=== PATIENT | male | born 1955 | race Caucasian/White ===

== ENCOUNTER 2019-12-21 14:04 | Inpatient (IN) | payer MEDICAID ==
[~2019-12-21] VITALS: Ht 167.6 cm; Wt 59.0 kg
[2019-12-21 14:10] VITALS: BP 129/76
--- NOTE | 2019-12-21 14:28 | NUR ---
BIB FAMILY C/O N/V & ABDOMINAL PAIN XTODAY . ABDOMEN SOFT. PATIENT STATES PAIN OF 4/10 AT THIS TIME. PATIENT POSITIONED FOR COMFORT; HOB ELEVATED; BEDRAILS UP X2; BED DOWN. ER MD MADE AWARE OF PT STATUS.
--- NOTE | 2019-12-21 14:52 | NUR ---
X RAY AT BEDSIDE.
--- NOTE | 2019-12-21 14:52 | NUR ---
LAB AT BEDSIDE.
--- NOTE | 2019-12-21 15:13 | NUR ---
EKG AT BEDSIDE.
[2019-12-21 15:16] LABS: BASOPHILS % (AUTO) 0.3 % (0.0-2.0); EOSINOPHILS % (AUTO) 0.1 % (0.0-4.0); HEMATOCRIT 48.4 % (36-52); HEMOGLOBIN 15.8 g/dL (12.0-18.0); LYMPHOCYTES # (AUTO) 1.2 K/uL (2.0-11.5); LYMPHOCYTES % (AUTO) 9.4 % (20.5-51.1); MEAN CORPUSCULAR HEMOGLOBIN 28 pg (27-31); MEAN CORPUSCULAR HGB CONC 33 g/dL (33-37); MEAN CORPUSCULAR VOLUME 87.1 fL (80-94); MONOCYTES # (AUTO) 0.4 K/uL (0.8-1.0); MONOCYTES % (AUTO) 3.5 % (1.7-9.3); NEUTROPHILS # (AUTO) 10.7 K/uL (1.8-7.7); NEUTROPHILS % (AUTO) 86.7 % (42.2-75.2); PLATELET COUNT (AUTO) 245 K/uL (140-450); RED BLOOD CELL COUNT(AUTO) 5.56 MIL/uL (4.20-6.10); RED CELL DISTRIBUTION WIDTH 13.8 % (11.6-13.7); WHITE BLOOD COUNT (AUTO) 12.3 K/uL (4.8-10.8)
[2019-12-21 15:32] LABS: ACETONE, SERUM NEGATIVE (NEGATIVE)
[2019-12-21 15:38] LABS: ALBUMIN 4.3 g/dL (3.4-5.0); ANION GAP 16.1 (8-16); ASPARTATE AMINOTRANSFERASE 14 U/L (15-37); CARBON DIOXIDE 28.1 mmol/L (21-32); CHLORIDE 106 mmol/L (98-107); CREATININE 0.9 mg/dL (0.7-1.3); GFR ARICAN-AMERICAN 109 mL/min (>90); GLUCOSE 192 mg/dL (74-106); MAGNESIUM 2.2 mg/dL (1.8-2.4); POTASSIUM 4.2 mmol/L (3.5-5.1); SODIUM SERUM 146 mmol/L (136-145); TOTAL BILIRUBIN 0.4 mg/dL (0.0-1.0); UREA NITROGEN, BLOOD 35 mg/dL (7-18)
[2019-12-21] MEDS ORDERED: FAMOTIDINE 20 MG/2 ML VIAL IVP ONE (16:15)
[2019-12-21] MEDS ORDERED: ONDANSETRON 4 MG/2 ML VIAL IVP ONE (16:15)
[2019-12-21] MEDS ORDERED: METOCLOPRAMIDE 10 MG/2 ML INJ VIAL IVP ONE (16:15)
[2019-12-21] MEDS: NACL 0.9% 1,000 ML IV ONE ×2 (16:19→17:10)
[2019-12-21] MEDS ORDERED: ATOR20TA40 PO (17:17)
[2019-12-21] MEDS ORDERED: METO25TE2 PO (17:17)
[2019-12-21] MEDS ORDERED: ESCI5TAB PO ×2 (17:17→17:59)
[2019-12-21] MEDS ORDERED: METO25TA PO (17:59)
[2019-12-21] MEDS ORDERED: ATOR40TA PO (17:59)
[2019-12-21] MEDS ORDERED: INSU100S22 SC (17:59)
[2019-12-21] MEDS ORDERED: DOCUSATE SODIUM 100 MG GELCAP PO PRN (18:00)
[2019-12-21] MEDS ORDERED: ACETAMINOPHEN 325 MG TAB PO PRN (18:00)
[2019-12-21] MEDS ORDERED: HYDROcodone/APAP 7.5/325 MG 1 TAB PO PRN (18:00)
[2019-12-21] MEDS ORDERED: ONDANSETRON 4 MG/2 ML VIAL IM/IVP PRN (18:00)
--- NOTE | 2019-12-21 18:25 | NUR ---
PT CAME TO UNIT FROM ER. PT WAS ENDORSED BY ER NURSE AILEEN. PT CAME TO UNIT VIA GURNEY ACCOMPANIED BY DAUGHTER AND MOTHER. IV INTACT ON RIGHT FOREARM, 2O GAUGE. SKIN IN TACT. NO ER PHOTOGRAPH. BELONGINGS LIST SIGNED. PER DAUGHTER AND MOTHER. PT HAS LEFT SIDED WEAKNESS FROM A STROKE IN MARCH 2019. ALSO NOTED WITH RIGHT CRANIAL DEPRESSION. PATIENT IS AXO 1. VITAL SIGNS NOTED AT TEMP: 98.1, RESP: 18, O2 99, HR 77, BP 123/73. PT RESPONDS TO VERBAL STIMULI. FAMILY BE BEDSIDE.
--- NOTE | 2019-12-21 18:28 | NUR ---
Patient will be admitted to care of dr luu. Admited to [MS. Will go to room 123A. Belongings list completed. Report to SHAMIR ZAVALETA.
[2019-12-21 18:38] LABS: BILIRUBIN,URINE NEGATIVE (NEGATIVE); BLOOD, URINE NEGATIVE (NEGATIVE); COLOR,URINE YELLOW (YELLOW); LEUKOCYTE ESTERASE ,URINE TRACE (NEGATIVE); NITRITE, URINE NEGATIVE (NEGATIVE); PH,URINE 5.5 (5.0-9.0); UGLUCOSE NEGATIVE (NEGATIVE)
[2019-12-21 18:56] LABS: PROTHROMBIN TIME 10.1 secs (10.8-13.4)
--- NOTE | 2019-12-21 19:18 | NUR ---
SHIFT REPORT GIVEN TO CLASSIFICATION CASE MANAGER NURSE. PT IS IN BED IN STABLE CONDITION. NO DISTRESS NOTED. CALL LIGHT IN REACH.
--- NOTE | 2019-12-21 19:19 | NUR ---
RECEIVED REPORT FROM AM SHIFT NURSE. PATIENT AWAKE BUT CONFUSED. ARGENTINE SPEAKING. NO APPARENT DISTRESS NOTED. VISIBLE CHEST RISE AND FALL NOTED. WITH IV ON RIGHT ARM 20G RUNNING IVF. REVIEWED PLAN OF CARE WITH FAMILY. VERBALIZED UNDERSTANDING. BED ON LOW POSITION. BED ALARM ON. CALL LIGHT WITHIN REACH. WILL CONTINUE TO MONITOR.
[2019-12-21 19:20] LABS: APPEARANCE,URINE HAZY (CLEAR); RBC,URINE NONE SEEN /HPF (0-5)
[2019-12-21 19:30] VITALS: BP 123/73
[2019-12-21 19:38] LABS: BARBITURATE, URINE NEG. ng/ml (NEG <=200); BENZODIAZEPINE, URINE NEG. ng/mL (NEG <=200); CANNABINOID, URINE NEG. ng/mL (NEG <=50); COCAINE, URINE NEG. ng/mL (NEG <=300); OPIATE, URINE NEG. ng/mL (NEG <=2000); PHENCYCLIDINE SCREEN,URINE NEG. ng/mL (NEG <=25)
[2019-12-21 19:54] LABS: CHOL/HDL RATIO 2.8 (1-4.5); FREE T4 (FREE THYROXINE) 1.05 ng/dL (0.76-1.46); MAGNESIUM 2.2 mg/dL (1.8-2.4); THYROID STIMULATING HORMONE 1.34 uIU/mL (0.34-3.74)
[2019-12-21] MEDS ORDERED: DEXTROSE 50% 50 ML SYR IVP PRN (20:15)
[2019-12-21] MEDS: NACL 0.9% 1,000 ML IV SCH (21:00)
[2019-12-21] MEDS: INSULIN LANTUS 100 UNITS/ML 10 ML VIAL SUBQ SCH (21:00)
[2019-12-21] MEDS: BLOOD GLUCOSE MONITORING 1 DEV DEV FS SCH (21:06)
--- NOTE | 2019-12-21 21:15 | NUR ---
PATIENT AWAKE IN BED. CHANGED PADS. TURNED AND REPOSITIONED FOR COMFORT. NO APPARENT DISTRESS NOTED. WILL CONTINUE TO MONITOR.
[2019-12-21] MEDS: ATORVASTATIN 20 MG TAB PO SCH (21:21)
[2019-12-21] MEDS: METOPROLOL 25 MG TAB PO SCH (21:21)
[2019-12-21] MEDS ORDERED: CRUSHER, PILL MC ONE (21:25)
--- NOTE | 2019-12-21 23:10 | NUR ---
PATIENT ASLEEP IN BED. NO APPARENT DISTRESS NOTED. VISIBLE CHEST RISE AND FALL NOTED. BED ON LOW POSITION. BED ALARM ON. WILL CONTINUE TO MONITOR.
[2019-12-22] VITALS: BP 112/71
--- NOTE | 2019-12-22 01:05 | NUR ---
ROUNDS DONE. PATIENT ASLEEP IN BED. NO APPARENT DISTRESS NOTED. VISIBLE CHEST RISE AND FALL NOTED. WILL CONTINUE TO MONITOR.
--- NOTE | 2019-12-22 02:20 | NUR ---
CHECKS DONE. PATIENT ASLEEP IN BED. NO APPARENT DISTRESS NOTED. VISIBLE CHEST RISE AND FALL NOTED. WILL CONTINUE TO MONITOR.
[2019-12-22] MEDS: NACL 0.9% 1,000 ML IV SCH ×2 (04:08→15:24)
--- NOTE | 2019-12-22 04:15 | NUR ---
PATIENT ASLEEP IN BED. NO APPARENT DISTRESS NOTED. VISIBLE CHEST RISE AND FALL NOTED. BED ON LOW POSITION. BED ALARM ON. WILL CONTINUE TO MONITOR.
--- NOTE | 2019-12-22 05:56 | NUR ---
PATIENT AWAKE IN BED. NO APPARENT DISTRESS NOTED. VISIBLE CHEST RISE AND FALL NOTED. WILL CONTINUE TO MONITOR.
[2019-12-22] MEDS: BLOOD GLUCOSE MONITORING 1 DEV DEV FS SCH ×4 (05:59→21:33)
[2019-12-22 06:22] LABS: BASOPHILS % (AUTO) 0.4 % (0.0-2.0); EOSINOPHILS # (AUTO) 0.2 K/uL (0-0.4); EOSINOPHILS % (AUTO) 2.5 % (0.0-4.0); HEMATOCRIT 43.2 % (36-52); HEMOGLOBIN 14.2 g/dL (12.0-18.0); LYMPHOCYTES # (AUTO) 4.1 K/uL (2.0-11.5); LYMPHOCYTES % (AUTO) 43.2 % (20.5-51.1); MEAN CORPUSCULAR HEMOGLOBIN 28 pg (27-31); MEAN CORPUSCULAR HGB CONC 33 g/dL (33-37); MEAN CORPUSCULAR VOLUME 86.5 fL (80-94); MONOCYTES # (AUTO) 0.6 K/uL (0.8-1.0); MONOCYTES % (AUTO) 6.7 % (1.7-9.3); NEUTROPHILS # (AUTO) 4.5 K/uL (1.8-7.7); NEUTROPHILS % (AUTO) 47.2 % (42.2-75.2); PLATELET COUNT (AUTO) 233 K/uL (140-450); RED BLOOD CELL COUNT(AUTO) 4.99 MIL/uL (4.20-6.10); RED CELL DISTRIBUTION WIDTH 13.8 % (11.6-13.7); WHITE BLOOD COUNT (AUTO) 9.5 K/uL (4.8-10.8)
--- NOTE | 2019-12-22 07:10 | NUR ---
RECEIVED REPORT FROM NIGHT NURSE, PT IS ASLEEP IN BED, PT IS STABLE, IV INTACT, SAFETY MEASURES IN PLACE, WILL CONTINUE TO MONITOR
--- NOTE | 2019-12-22 07:10 | NUR ---
ENDORSED TO AM SHIFT NURSE FOR CONTINUITY OF CARE.
[2019-12-22 07:11] LABS: CARBON DIOXIDE 26.8 mmol/L (21-32); CREATININE 0.6 mg/dL (0.7-1.3); POTASSIUM 3.8 mmol/L (3.5-5.1)
[2019-12-22 08:00] VITALS: BP 132/71
--- NOTE | 2019-12-22 08:59 | NUR ---
PATIENT HAS BEEN SCREENED AND CATEGORIZED HIGH NUTRITION RISK. PATIENT WILL BE SEEN WITHIN 1-2 DAYS OF ADMISSION. 12/22/19-12/23/[address]
[2019-12-22] MEDS ORDERED: METOPROLOL SUCCINATE 50 MG TABER PO SCH (09:00)
[2019-12-22] MEDS ORDERED: ESCITALOPRAM 20 MG TAB PO SCH (09:00)
[2019-12-22] MEDS ORDERED: LACTOBACILLUS RHAMNOSUS GG 1 EACH CAP PO SCH (09:00)
[2019-12-22] MEDS ORDERED: ATORVASTATIN 20 MG TAB PO SCH (09:00)
[2019-12-22] MEDS: LACTOBACILLUS RHAMNOSUS GG 1 EACH CAP PO SCH ×2 (09:00→10:16)
--- NOTE | 2019-12-22 09:10 | NUR ---
SCREEN FOR LOW KAI SCALE AT RISK, CONTINUE TO FOLLOW PRESSURE ULCER PREVENTION INTERVENTIONS. -TURN AND REPOSITION PATIENT Q 2H -ASSESS AND MONITOR SKIN CONDITION DURING POSITION CHANGES -OFFLOAD BILATERAL HEELS BY PLACING PILLOWS UNDER CALVES AT ALL TIMES, UNLESS OTHERWISE CONTRAINDICATED -PRESSURE REDISTRIBUTION BY PLACING PILLOWS AND OFFLOADING SACRALCOCCYX -KEEP SKIN CLEAN AND DRY AT ALL TIMES.
[2019-12-22] MEDS: METOPROLOL 25 MG TAB PO SCH ×2 (10:16→21:00)
--- NOTE | 2019-12-22 10:16 | NUR ---
GAVE PT ORDERED MEDICATION, EDUCATION GIVEN, PT TOLERATED WELL, PT IS STABLE, CALL LIGHT WITHIN REACH.
[2019-12-22] MEDS: ESCITALOPRAM 20 MG TAB PO SCH (10:17)
[2019-12-22] MEDS: INSULIN LISPRO SLIDING SCALE 100 UNITS/ML VIAL SUBQ PRN ×2 (12:08→17:30)
--- NOTE | 2019-12-22 13:20 | NUR ---
PATIENT SLEEPING, NO SOB NOTED, SKIN WARM TO TOUCH RESP. EVEN AND UNLABORED, NO DISTRESS NOTED.
--- NOTE | 2019-12-22 13:28 | NUR ---
12/22/19 RD INITIAL ASSESSMENT COMPLETED PLEASE REFER TO NUTRITION ASSESSMENT UNDER CARE ACTIVITY FOR ESTIMATED NUTRITIONAL NEEDS. 1. RECOMMEND PUREE CCHO 60GM AND CARDIAC DIET TOLERATED 2. ENCOURAGE PO INTAKE 3. PROVIDE ASSISTANCE WITH MEALS WHEN NEEDED 4. RD TO FOLLOW-UP 3-5 DAYS, MODERATE RISK MIRA AGUAYO, ALDO
--- NOTE | 2019-12-22 13:40 | NUR ---
PT RESTING IN BED, PT IS STABLE, NO SIGNS OF DISTRESS NOTED, CALL LIGHT WITHIN REACH.
--- NOTE | 2019-12-22 15:38 | NUR ---
PT RESTING IN BED, NO SIGNS OF DISTRESS NOTED, RESPIRATIONS ARE EVEN AND UNLABORED ON ROOM AIR, CALL LIGHT WITHIN REACH.
[2019-12-22 16:00] VITALS: BP 106/60
--- NOTE | 2019-12-22 17:30 | NUR ---
GAVE PT ORDERED INSULIN PER PROTOCOL FOR BLOOD GLUCOSE OF 206, PT EDUCATION GIVEN, PT TOLERATED WELL, FAMILY AT BEDSIDE, CALL LIGHT WITHIN REACH.
--- NOTE | 2019-12-22 19:01 | NUR ---
GAVE REPORT TO NIGHT NURSE FOR CONTINUITY OF CARE, PT IS STABLE
--- NOTE | 2019-12-22 19:02 | NUR ---
RECEIVED REPORT FROM AM SHIFT NURSE. PATIENT ALERT AND ORIENTED X1. NO APPARENT DISTRESS NOTED. WITH IV ON RIGHT ARM 20 GAUGE RUNNING IVF. BED ON LOW POSITION. BED ALARM ON. REVIEWED CURRENT PLAN OF CARE WITH FAMILY. VERBALIZED UNDERSTANDING. WILL CONTINUE TO MONITOR.
[2019-12-22] MEDS: INSULIN LANTUS 100 UNITS/ML 10 ML VIAL SUBQ SCH (21:00)
--- NOTE | 2019-12-22 21:00 | NUR ---
PATIENT AWAKE IN BED. CHANGED PADS AND TURNED AND REPOSITIONED FOR COMFORT. WILL CONTINUE TO MONITOR.
[2019-12-22] MEDS: ATORVASTATIN 20 MG TAB PO SCH (21:34)
--- NOTE | 2019-12-22 22:55 | NUR ---
PATIENT ASLEEP IN BED. NO APPARENT DISTRESS NOTED. BED ALARM ON. BED ON LOW POSITION. CALL LIGHT WITHIN REACH. WILL CONTINUE TO MONITOR.
--- NOTE | 2019-12-23 00:50 | NUR ---
ROUNDS DONE. PATIENT ASLEEP IN BED. NO APPARENT DISTRESS NOTED. VISIBLE CHEST RISE AND FALL NOTED. WILL CONTINUE TO MONITOR.
[2019-12-23] MEDS: NACL 0.9% 1,000 ML IV SCH ×2 (02:29→10:30)
--- NOTE | 2019-12-23 02:45 | NUR ---
PATIENT ASLEEP IN BED. NO APPARENT DISTRESS NOTED. VISIBLE CHEST RISE AND FALL NOTED. WILL CONTINUE TO MONITOR.
[2019-12-23 04:00] VITALS: BP 102/51
--- NOTE | 2019-12-23 04:40 | NUR ---
PATIENT ASLEEP IN BED. NO APPARENT DISTRESS NOTED. VISIBLE CHEST RISE AND FALL NOTED. WILL CONTINUE TO MONITOR.
[2019-12-23] MEDS: BLOOD GLUCOSE MONITORING 1 DEV DEV FS SCH (05:55)
--- NOTE | 2019-12-23 06:35 | NUR ---
PATIENT ASLEEP IN BED. NO APPARENT DISTRESS NOTED. VISIBLE CHEST RISE AND FALL NOTED. WILL CONTINUE TO MONITOR.
--- NOTE | 2019-12-23 07:24 | NUR ---
ENDORSED TO AM SHIFT NURSE FOR CONTINUITY OF CARE.
--- NOTE | 2019-12-23 07:25 | NUR ---
SHIFT REPORT RECEIVED FROM BEAN PICKER NURSE. PT IS IN BED IN STABLE CONDITION. NO DISTRESS NOTED. NO COMPLAINS OF PAIN. CALL LIGHT IN REACH.
[2019-12-23 08:00] VITALS: BP 114/60
[2019-12-23 08:28] LABS: BASOPHILS % (AUTO) 0.4 % (0.0-2.0); EOSINOPHILS # (AUTO) 0.2 K/uL (0-0.4); EOSINOPHILS % (AUTO) 2.2 % (0.0-4.0); HEMATOCRIT 43.1 % (36-52); HEMOGLOBIN 14.1 g/dL (12.0-18.0); LYMPHOCYTES # (AUTO) 3.3 K/uL (2.0-11.5); LYMPHOCYTES % (AUTO) 39.5 % (20.5-51.1); MEAN CORPUSCULAR HEMOGLOBIN 29 pg (27-31); MEAN CORPUSCULAR HGB CONC 33 g/dL (33-37); MEAN CORPUSCULAR VOLUME 86.7 fL (80-94); MONOCYTES # (AUTO) 0.5 K/uL (0.8-1.0); MONOCYTES % (AUTO) 5.8 % (1.7-9.3); NEUTROPHILS # (AUTO) 4.4 K/uL (1.8-7.7); NEUTROPHILS % (AUTO) 52.1 % (42.2-75.2); PLATELET COUNT (AUTO) 220 K/uL (140-450); RED BLOOD CELL COUNT(AUTO) 4.97 MIL/uL (4.20-6.10); RED CELL DISTRIBUTION WIDTH 13.9 % (11.6-13.7); WHITE BLOOD COUNT (AUTO) 8.5 K/uL (4.8-10.8)
[2019-12-23 08:41] LABS: ANION GAP 11.7 (8-16); CARBON DIOXIDE 29.3 mmol/L (21-32); CREATININE 0.6 mg/dL (0.7-1.3)
[2019-12-23 08:44] LABS: MAGNESIUM 1.9 mg/dL (1.8-2.4)
[2019-12-23] MEDS: METOPROLOL 25 MG TAB PO SCH ×2 (09:00→09:17)
[2019-12-23] MEDS: LACTOBACILLUS RHAMNOSUS GG 1 EACH CAP PO SCH ×2 (09:00→09:17)
[2019-12-23] MEDS: ESCITALOPRAM 20 MG TAB PO SCH (09:17)
--- NOTE | 2019-12-23 09:27 | NUR ---
METOPROLOL NOT GIVEN BP 116/60, HR 59.
--- NOTE | 2019-12-23 11:04 | NUR ---
DC [age] YRS OLD MALE PATIENT WAS ADMITTED FROM HOME WITH A DX OF DEHYDRATION AND SEPSIS. PT HAS A HX OF STROKE S/P RIGHT CRANIOTOMY WITH LEFT SIDED PARALYSIS DM, HTN, DYSLIPIDEMIA AND BPH ,PT IS BED BOUND AND LIVES WITH FAMILY.C XRAY SHOWED NO ACUTE CARDIOPULMONARY DISEASE. LACTIC ACID 2.8 ADMINISTERED IVF RESOLVED LA 1.8 UA 3+ , STARTED IVF , ROCEPHIN . DC PLAN TO GO HOME AND PT IS STABLE TO BE DISCHARGED TODAY FAMILY WILL PROVIDE THE TRANSPORT. CM TO FOLLOW.
--- NOTE | 2019-12-23 14:30 | NUR ---
PT WAS DISCHARGED TODAY. PT WAS STABLE. PT WAS TAKEN IN WHEEL CHAIR TO HER CHAIR ACCOMPANIED BY AND DAUGHTER. NO COMPLAINS OF PAIN REPORTED. IV REMOVED. NO ACTIVE BLEEDING NOTED. ID BAND REMOVED. DISCHARGE INSTRUCTIONS GIVEN TO PATIENT. PT'S BELONGINGS WITH PATIENT. PT IS BED BOUND AND LIVES WITH FAMILY.FAMILY WILL PROVIDE THE TRANSPORT.
== END 2019-12-23 14:55 | disposition home or self-care (01) | DRG 463 ==
LOC: MED 14:04 → MTU 17:21
PROVIDERS: ADMIT General Practice; ATTEND General Practice
DX: N39.0 Urinary tract infection, site not specified (principal); E87.0 Hyperosmolality and hypernatremia; E87.2 Acidosis; I50.9 Heart failure, unspecified; I11.0 Hypertensive heart disease with heart failure; G83.9 Paralytic syndrome, unspecified; E78.00 Pure hypercholesterolemia, unspecified; E86.0 Dehydration; E78.5 Hyperlipidemia, unspecified; E11.9 Type 2 diabetes mellitus without complications; F32.9 Major depressive disorder, single episode, unspecified; N40.1 Benign prostatic hyperplasia with lower urinary tract symptoms; R33.8 Other retention of urine; E87.8 Other disorders of electrolyte and fluid balance, not elsewhere classified; Z79.4 Long term (current) use of insulin; Z79.899 Other long term (current) drug therapy; Z86.73 Personal history of transient ischemic attack (TIA), and cerebral infarction without residual deficits; Z74.01 Bed confinement status
CPT/HCPCS: 36415; 70450; 71045; 80048; 80053; 80305; 81001; 82009; 82948; 83036; 83605; 83735; 83880; 84100; 84439; 84443; 84484; 85025; 85610; 85730; 87081; 87086; 87186; 93005; 96375; 96376; 97161-GP; 99285; J0696; J1815; J2405; J2765; J3490; J7030; J7060; Q0092

== ENCOUNTER 2021-12-06 10:59 | Emergency (ER) | payer MEDICAID ==
[~2021-12-06] VITALS: Ht 170.2 cm; Wt 77.1 kg
[~2021-12-06 10:59] MED LIST: ATOR40TA PO; ESCI5TAB PO; INSU100S22 SC; METO25TA PO
[2021-12-06 11:16] VITALS: BP 100/60
[2021-12-06] MEDS ORDERED: PRED20TA5 PO (14:43)
[2021-12-06] MEDS ORDERED: IBUP-2213 PO (14:43)
--- NOTE | 2021-12-06 19:15 | NUR ---
Patient discharged with v/s stable. Written and verbal after care instructions given and explained. Patient verbalized understanding. Ambulatory with steady gait. All questions addressed prior to discharge. Advised to follow up with PMD.
[2021-12-07 02:29] VITALS: BP 100/60
== END 2021-12-06 19:15 | disposition home or self-care (01) ==
LOC: MED 10:59
DX: J02.9 Acute pharyngitis, unspecified (principal); R42 Dizziness and giddiness; R50.9 Fever, unspecified; R05.9 Cough, unspecified; R51.9 Headache, unspecified; J45.909 Unspecified asthma, uncomplicated; E11.9 Type 2 diabetes mellitus without complications; I10 Essential (primary) hypertension; Z86.73 Personal history of transient ischemic attack (TIA), and cerebral infarction without residual deficits; Z98.890 Other specified postprocedural states; Z79.4 Long term (current) use of insulin; Z79.899 Other long term (current) drug therapy
CPT/HCPCS: 99282